=== PATIENT | female | born 1995 | race Caucasian/White ===

== ENCOUNTER 2019-07-22 13:55 | Emergency (ER) | payer OTHER, SELFPAY ==
[2019-07-22 14:06] VITALS: BP 122/80; PULSE 78; RESP 16; TEMP 36.7; O2SAT 100
--- NOTE | 2019-07-22 14:07 | ED.GENADULT ---
HPI - General Adult General Chief complaint: Ear Stated complaint: Ear Pain Time Seen by Provider: 07/22/19 14:07 Source: patient Mode of arrival: ambulatory Limitations: no limitations History of Present Illness HPI narrative: 24-year-old female patient presents to the [facility] with complaints of left ear pain and decreased hearing to the left ear for the past 2 days. Patient states that she does have chronic issues with her ears and states she has had ear infections, fungal infections of the outer ear as well as chronic cerebrum production. Patient states that she usually does have to go to an ENT doctor and get her ears flushed multiple times. Patient states that she tried to get in today but they were not able to get her in today. Patient denies any fevers, runny nose, stuffy nose, sore throat, cough, chest pain, shortness of breath, abdominal pain, nausea, vomiting or diarrhea. Related Data Home Medications Medication Instructions Recorded Confirmed sertraline [Zoloft] 25 mg PO DAILY 06/26/19 06/26/19 clotrimazole TOPICAL 07/22/19 Allergies Allergy/AdvReac Type Severity Reaction Status Date / Time mint Allergy Intermediate swelling Verified 05/13/19 12:23 amoxicillin AdvReac Unknown Nausea and Verified 05/13/19 12:23 Vomiting Penicillins AdvReac Unknown Nausea and Verified 05/13/19 12:23 Vomiting Review of Systems Review of Systems: Narrative: CONSTITUTIONAL: Denies fever, chills, or sweats. EYES: Denies visual changes, redness, or discharge. ENT: Denies rhinorrhea, congestion, sore throat, positive left otalgia. CARDIOVASCULAR: Denies chest pain, palpitations, or edema. RESPIRATORY: Denies cough or dyspnea. GASTROINTESTINAL: Denies abdominal pain, nausea, vomiting, or diarrhea. GENITOURINARY: Denies dysuria or hematuria. SKIN: Denies rash or itching. MUSCULOSKELETAL: Denies back pain, joint pain, or myalgia. NEUROLOGIC: Denies headache, numbness, or weakness. PSYCHIATRIC: Denies anxiety or depression. [facility] Past Medical History Medical History ADHD Anxiety History of kidney stones Urolithiasis Surgical History Surgical History History of appendectomy History of lithotripsy History of wisdom tooth extraction Social History Social History Smoking status: Never smoker Gender identity (if verbalized by the patient): Female Comments At the time of my signature I agree with nursing past medical history, surgical, social, and family history. There is no relevant family history pertinent to the presenting complaint. Exam Narrative: Exam Narrative: GENERAL: Well-appearing, well-nourished, and in no acute distress. HEAD: Normocephalic, atraumatic. EYES: PERRLA and EOMI. ENT: Nares clear, no rhinorrhea or epistaxis. Mucous membranes moist. Posterior pharynx with no erythema, tonsillar edema, exudates or lesions present. The left TM does have some erythema as well as some swelling and erythema noted to the canal. NECK: Supple. No lymphadenopathy CHEST: Clear to auscultation. No respiratory distress. HEART: Regular rate and rhythm. No murmur heard. Normal peripheral pulses. ABDOMEN: Soft, nontender, nondistended, normal active bowel sounds. EXTREMITIES: Normal range of motion. No edema. SKIN: Warm, dry, no rash. NEURO: No focal deficits. Alert and oriented x3. Course Vital Signs Vital signs: Vital Signs Temperature 36.7 C 07/22/19 14:06 Pulse Rate 78 07/22/19 14:06 Respiratory Rate 16 07/22/19 14:06 Blood Pressure 122/80 07/22/19 14:06 Pulse Oximetry 100 07/22/19 14:06 Temperature 36.7 C 07/22/19 14:06 Pulse Rate 78 07/22/19 14:06 Respiratory Rate 16 07/22/19 14:06 Blood Pressure 122/80 07/22/19 14:06 Pulse Oximetry 100 07/22/19 14:06 Vital signs reviewed. Medical Decision Making D
== END 2019-07-22 14:20 | disposition home or self-care (01) ==
PROVIDERS: Emergency Provider Nurse Practitioner Family; PCP Nurse Practitioner
DX: H60.62 Unspecified chronic otitis externa, left ear (principal); F41.9 Anxiety disorder, unspecified
CPT/HCPCS: 99213; G0463

== ENCOUNTER 2020-03-28 10:13 | Emergency (ER) | payer OTHER, SELFPAY ==
--- NOTE | ~2020-03-28 | XR_ITS ---
XR hand LT min 3V 03/28/2020 10:38 INDICATION: Left hand pain after recent injury PROCEDURE: 3 views left hand COMPARISON: No prior studies for comparison. FINDINGS: Fracture, dislocation or subluxation is not identified. The soft tissues appear within norm al limits. No foreign bodies are identified. IMPRESSION: 1: NO ACUTE BONE OR JOINT ABNORMALITY IDENTIFIED. Reviewed, dictated and finalized at location A.
[2020-03-28 10:29] VITALS: BP 128/83; PULSE 80; RESP 16; TEMP 36.8; O2SAT 99
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
== END 2020-03-28 11:00 | disposition home or self-care (01) ==
PROVIDERS: Emergency Provider Nurse Practitioner
DX: S69.92XA Unspecified injury of left wrist, hand and finger(s), initial encounter (principal); W22.09XA Striking against other stationary object, initial encounter; F90.9 Attention-deficit hyperactivity disorder, unspecified type; F41.9 Anxiety disorder, unspecified
CPT/HCPCS: 73130; 99213; G0463

== ENCOUNTER 2020-08-06 11:28 | Emergency (ER) | payer OTHER, SELFPAY ==
--- NOTE | 2020-08-06 11:38 | ED.WOUNDLAC ---
HPI - Wound/Laceration General Chief Complaint: Wound/Laceration Stated Complaint: non healing wound Time Seen by Provider: 08/06/20 11:44 Source: patient and RN notes reviewed Mode of arrival: ambulatory Limitations: no limitations History of Present Illness HPI narrative: 25-year-old female presents with concern for a wound near her breast. Reports history of getting wounds along her bra line, she has seen a template maker about it. Reports this most recent wound opened up and was draining. Denies any purulent drainage. Reports clear drainage. Denies fever, malaise, rash, otherwise. Body four view annotation: 1. <0.5 cm ulceration with pink tissue bed Related Data Allergies Allergy/AdvReac Type Severity Reaction Status Date / Time mint Allergy Intermediate swelling Verified 08/06/20 11:38 amoxicillin AdvReac Intermediate Nausea and Verified 08/06/20 11:38 Vomiting Penicillins AdvReac Intermediate Nausea and Verified 08/06/20 11:38 Vomiting Review of Systems Review of Systems: Narrative: CONSTITUTIONAL: Denies malaise, chills, sweats, or fever. CARDIOVASCULAR: Denies chest pain, palpitations, or edema. RESPIRATORY: Denies cough or dyspnea. SKIN: Reports wound along her bra line MUSCULOSKELETAL: Denies myalgia. All systems reviewed & are unremarkable except as noted in HPI and below PMFSH Past Medical History Medical History (Updated 08/06/20 @ 11:53 by Jes Hernández NP) ADHD Anxiety History of kidney stones Urolithiasis Surgical History Surgical History History of appendectomy History of lithotripsy History of wisdom tooth extraction Social History Social History Smoking status: Never smoker Gender identity (if verbalized by the patient): Female Comments At time of signature, agree with nursing past medical, surgical, social and family history. There is no relevant family history pertinent to the presenting complaint Exam Narrative: Exam Narrative: GENERAL: Well-appearing, well-nourished, and in no acute distress. HEAD: Normocephalic, atraumatic. EYES: PERRLA, conjunctivae clear, and EOMI. ENT: Mucous membranes moist. Oropharynx without edema, erythema or lesions. NECK: Supple. No lymphadenopathy CHEST: Clear to auscultation. No respiratory distress. HEART: Regular rate and rhythm. SKIN: Warm, dry. Ulceration under left breast, less than 5 cm in diameter, beefy red wound bed, no surrounding erythema, induration, swelling. NEURO: Alert and oriented x3. PSYCH: Normal mood and affect Skin: Full body images: 1. <0.5m diameter ulceration with beefy red wound bed with no surrounding erythema, induration, edema. Clear drainage noted Course Course Emergency Course: Patient is aware of diagnosis, understands and agrees to treatment plan. Anticipatory guidance given. Patient agrees to follow-up as directed and is aware of reasons to seek care at the emergency department. Portions of this record may have been created with voice recognition software Vital Signs Vital signs: Vital Signs Temperature 97.5 F L 08/06/20 11:44 Pulse Rate 74 08/06/20 11:44 Respiratory Rate 16 08/06/20 11:44 Blood Pressure 131/78 08/06/20 11:44 Pulse Oximetry 99 08/06/20 11:44 Temperature 97.5 F L 08/06/20 11:44 Pulse Rate 74 08/06/20 11:44 Respiratory Rate 16 08/06/20 11:44 Blood Pressure 131/78 08/06/20 11:44 Pulse Oximetry 99 08/06/20 11:44 Reviewed. MDM - Wound/Laceration MDM Narrative Medical decision making narrative: Exam findings show no acute concerns or changes; patient is non-toxic appearing and is in no distress. Patient is appropriate for outpatient treatment and follow-up. Differential Diagnosis Differential diagnosis: Likely abscess and other (Cellulitis, nonhealing wound) Critical Care Time Critical Care Time Critical Care Time: No Dis
[2020-08-06 11:44] VITALS: BP 131/78; PULSE 74; RESP 16; TEMP 36.4; O2SAT 99
== END 2020-08-06 11:58 | disposition home or self-care (01) ==
PROVIDERS: Emergency Provider Nurse Practitioner; PCP Nurse Practitioner
DX: L98.499 Non-pressure chronic ulcer of skin of other sites with unspecified severity (principal)
CPT/HCPCS: 99213; G0463

== ENCOUNTER 2022-02-11 14:34 | Emergency (ER) | payer OTHER, SELFPAY ==
[2022-02-11] VITALS (14 sets, daily range): BP systolic 112–143; BP diastolic 72–87; PULSE 84–122; RESP 20; TEMP 37.1; O2SAT 100
[2022-02-11 15:05] LABS: Basophils Percent Auto 0.3 % (0.2-1.2); Eosinophils Absolute Auto 0.1 K/mm3 (0-0.3); Eosinophils Percent Auto 1.8 % (0-4.4); Hematocrit 39.7 % (37.0-47.0); Hemoglobin 13.4 g/dL (12.0-15.0); Immature Granulocyte Absolute 0.01 K/mm3 (0.00-0.031); Immature Granulocyte Percent A 0.2 % (0-0.5); Lymphocytes Absolute Auto 1.16 K/mm3 (0.9-3.2); Lymphocytes Percent Auto 17.7 % (18.3-44.2); Mean Corpuscular HGB Conc 33.8 g/dl (32-36); Mean Corpuscular Hemoglobin 29.8 pg (26-34); Mean Corpuscular Volume 88.4 fl (80-100); Mean Platelet Volume 9.9 fl (7.4-10.4); Monocytes Absolute Auto 0.4 K/mm3 (0.1-0.6); Monocytes Percent Auto 6.6 % (2.6-8.5); Neutrophils Absolute Auto 4.8 K/mm3 (1.3-6.7); Neutrophils Percent Auto 73.4 % (45.5-73.1); Platelet Count Result 204 k/mm3 (150-375); Red Blood Count 4.49 M/mm3 (4.2-5.4); Red Cell Distribution Width 11.9 % (11.5-14.5); White Blood Count 6.6 K/mm3 (4.5-10.0)
[2022-02-11 15:36] LABS: Beta HCG Quantitative 12.65 mIU/ML
--- NOTE | 2022-02-11 17:23 | ED.ABDPAIN ---
HPI - Abdominal Pain General Chief Complaint: Back Pain/Injury <Sanjuana Nolen PA-C - Last Filed: 02/11/22 19:25> Stated Complaint: lower back pain, possibly ? <Sanjuana Nolen PA-C - Last Filed: 02/11/22 19:25> Time Seen by Provider: 02/11/22 17:07 <Sanjuana Nolen PA-C - Last Filed: 02/11/22 19:25> Source: patient <MARYAM Robins Last Filed: 02/11/22 19:25> Mode of arrival: ambulatory <Sanjuana Nolen PA-C - Last Filed: 02/11/22 19:25> Limitations: no limitations <Sanjuana Nolen PA-C - Last Filed: 02/11/22 19:25> History of Present Illness HPI narrative: This is a 26 year old , about 5 weeks that presents to the ER for pelvic cramping intermittently over the last couple of days. Reports she had a positive home test a couple of days ago. She recently had a miscarriage earlier this year. She has not had any vaginal bleeding. Her last menstrual period was January 06. Her OB is Dr. Rios. Denies fever, vomiting, dysuria, hematuria. <Sanjuana Nolen PA-C - Last Filed: 02/11/22 19:25> Related Data Allergies/Adverse Reactions: Allergies Allergy/AdvReac Type Severity Reaction Status Date / Time mint Allergy Intermediate swelling Verified 08/06/20 11:38 amoxicillin AdvReac Intermediate Nausea and Verified 08/06/20 11:38 Vomiting Penicillins AdvReac Intermediate Nausea and Verified 08/06/20 11:38 Vomiting <Sanjuana Nolen PA-C - Last Filed: 02/11/22 19:25> Review of Systems Review of Systems: CONSTITUTIONAL: Denies fever GASTROINTESTINAL: Reports pelvic cramping. GENITOURINARY: Denies dysuria or hematuria. <Sanjuana Nolen PA-C - Last Filed: 02/11/22 19:25> All systems reviewed & are unremarkable except as noted in HPI and below <Sanjuana Nolen PA-C - Last Filed: 02/11/22 19:25> PMFSH Past Medical History Medical History: Medical History (Updated 02/11/22 @ 19:23 by Sanjuana Nolen PA-C) ADHD Anxiety History of kidney stones Urolithiasis <Sanjuana Nolen PA-C - Last Filed: 02/11/22 19:25> Surgical History Surgical History: Surgical History History of appendectomy History of lithotripsy History of wisdom tooth extraction <Sanjuana Nolen PA-C - Last Filed: 02/11/22 19:25> Social History Social History: Social History Smoking status: Never smoker Gender identity (if verbalized by the patient): Female <Sanjuana Nolen PA-C - Last Filed: 02/11/22 19:25> Exam Narrative: GENERAL: Well-appearing, well-nourished, and in no acute distress. HEAD: Normocephalic, atraumatic. EYES: EOMI. CHEST: Clear to auscultation. No respiratory distress. No wheezes rales or rhonchi HEART: Regular rate and rhythm. No murmur heard. Normal peripheral pulses. ABDOMEN: Soft, nontender, nondistended, normal active bowel sounds. No CVA tenderness EXTREMITIES: Normal range of motion. No edema. SKIN: Warm, dry, no rash. NEURO: No focal deficits. Alert and oriented x3. PSYCH: Normal mood and affect <Sanjuana Nolen PA-C - Last Filed: 02/11/22 19:25> Course TELEPHONIC NURSE CASE MANAGER/PA Physician Supervision For this patient encounter, I reviewed the TELEPHONIC NURSE CASE MANAGER or PA documentation, treatment plan, and medical decision making <Krzysztof Ferrell MD - Last Filed: 02/11/22 20:20> Vital Signs Vital signs: Vital Signs Temperature 98.8 F 02/11/22 14:51 Pulse Rate 122 H 02/11/22 14:51 Respiratory Rate 20 02/11/22 14:51 Blood Pressure 143/85 H 02/11/22 14:51 Pulse Oximetry 100 02/11/22 14:51 Oxygen Delivery Room Air 02/11/22 14:51 Temperature 98.8 F 02/11/22 14:51 Pulse Rate 84 02/11/22 17:50 Respiratory Rate 20 02/11/22 14:51 Blood Pressure 121/83 02/11/22 19:31 Pulse Oximetry 100 02/11/22 19:45 Oxygen Delivery Room Air 02/11/22 14:51 <Sanjuana Nolen PA-C - Last Filed: 08
[2022-02-11 17:47] LABS: Appearance Urine Clear (Clear); Bilirubin Urine Negative (Negative); Blood Urine Negative (Negative); Color Urine Yellow (Yellow); Glucose Urine UA Negative (Negative); Ketones Urine Negative (Negative); Leukocyte Esterase Ur Negative LEU/UL (Negative); Nitrate Urine Negative (Negative); Protein Urine Negative (Negative); Specific Grav Ur 1.015 (1.001-1.035); Urobilinogen Urine 0.2 mg/dL (<2.0)
[2022-02-11 17:48] LABS: Add Urine Microscopic? NO
[2022-02-11 19:03] LABS: Alanine Aminotransferase 23 U/L (6-35); Albumin Level 4.7 g/dL (3.5-5.1); Alkaline Phosphatase 106 U/L (38-126); Anion Gap 10 mmol/L (8-16); Aspartate Amino Transferase 27 U/L (14-36); Bilirubin,Total 0.3 mg/dL (0.2-1.3); Blood Urea Nitrogen 12 mg/dL (7-17); Calcium 9.2 mg/dL (8.4-10.2); Carbon Dioxide 26 mmol/L (22-30); Chloride 103 mmol/L (98-107); Estimated CRCL calculation 110 ml/min; Estimated Glomerular Filt Rate > 60; Glucose 88 mg/dL (65-110); Sodium 139 mmol/L (137-145)
== END 2022-02-11 19:51 | disposition home or self-care (01) ==
PROVIDERS: Emergency Medicine; Physician Assistant; Emergency Provider Emergency Medicine; PCP Nurse Practitioner
DX: O26.891 Other specified pregnancy related conditions, first trimester (principal); R10.2 Pelvic and perineal pain; Z87.442 Personal history of urinary calculi; Z3A.01 Less than 8 weeks gestation of pregnancy
CPT/HCPCS: 36415; 80053; 81003; 81025; 84702; 85025; 85461; 99284

== ENCOUNTER 2022-02-13 09:58 | Outpatient (CLI) | payer OTHER, SELFPAY ==
[2022-02-13 10:46] LABS: Beta HCG Quantitative 16.18 mIU/ML
== END 2022-02-13 09:59 | disposition home or self-care (01) ==
LOC: ANHLAB 10:03
PROVIDERS: PCP Nurse Practitioner; Referring Provider Obstetrics & Gynecology; Visit Provider Physician Assistant
DX: Z34.90 Encounter for supervision of normal pregnancy, unspecified, unspecified trimester (principal); Z3A.00 Weeks of gestation of pregnancy not specified
CPT/HCPCS: 36415; 84702

== ENCOUNTER 2022-02-15 17:04 | Outpatient (CLI) | payer OTHER, SELFPAY ==
[2022-02-15 18:16] LABS: Beta HCG Quantitative 24.21 mIU/ML
[2022-02-18 06:28] LABS: Progesterone 2.2 ng/mL (***)
== END 2022-02-15 17:05 | disposition home or self-care (01) ==
PROVIDERS: PCP Nurse Practitioner; Visit Provider Obstetrics & Gynecology
DX: O20.0 Threatened abortion (principal); Z3A.00 Weeks of gestation of pregnancy not specified
CPT/HCPCS: 36415; 84144; 84702

== ENCOUNTER 2022-02-22 11:18 | Outpatient (RCR) | payer OTHER, SELFPAY ==
[2022-02-22 12:06] LABS: Beta HCG Quantitative < 2.39 mIU/ML
== END 2022-05-23 23:59 | disposition home or self-care (01) ==
LOC: ANHLAB 11:18
PROVIDERS: PCP Nurse Practitioner; Visit Provider Obstetrics & Gynecology
DX: O20.0 Threatened abortion (principal); Z3A.00 Weeks of gestation of pregnancy not specified
CPT/HCPCS: 36415; 84702

== ENCOUNTER 2022-07-16 19:59 | Emergency (ER) | payer OTHER, SELFPAY ==
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
[2022-07-16 20:02] VITALS: BP 132/73; PULSE 103; RESP 18; TEMP 36.6; O2SAT 100
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
== END 2022-07-16 21:35 | disposition home or self-care (01) ==
PROVIDERS: Emergency Provider Emergency Medicine; PCP Nurse Practitioner
DX: O9A.211 Injury, poisoning and certain other consequences of external causes complicating pregnancy, first trimester (principal); S19.9XXA Unspecified injury of neck, initial encounter; V49.50XA Passenger injured in collision with unspecified motor vehicles in traffic accident, initial encounter; Z3A.00 Weeks of gestation of pregnancy not specified
CPT/HCPCS: 72040; 99283

== ENCOUNTER 2022-07-26 11:12 | Outpatient (CLI) | payer OTHER, SELFPAY | END 2022-07-26 11:13 | disposition home or self-care (01) | LOC: ANHLAB 11:15 | PROVIDERS: PCP Nurse Practitioner; Visit Provider Obstetrics & Gynecology | DX: O20.0 Threatened abortion (principal); Z3A.00 Weeks of gestation of pregnancy not specified | CPT/HCPCS: 36415; 84702 ==

== ENCOUNTER 2022-08-23 15:09 | Emergency (ER) | payer OTHER, SELFPAY ==
[2022-08-23 15:11] VITALS: BP 129/85; PULSE 79; RESP 17; TEMP 37.1; O2SAT 100
--- NOTE | 2022-08-23 15:15 | ECG_ITS ---
Measurements Intervals [place] Rate: 79 P: 53 VT: 127 QRS: 74 QRSD: 97 T: 40 QT: 351 QTc: 404 Interpretive Statements SINUS RHYTHM NORMAL ECG NO PREVIOUS ECG AVAILABLE FOR COMPARISON Electronically Signed On 08-24-2022 14:56:05 LAB SPECIALIST by Chilo Wells D.O.
[2022-08-23 15:29] LABS: Basophils Percent Auto 0.3 % (0.2-1.2); Eosinophils Absolute Auto 0.1 K/mm3 (0-0.3); Eosinophils Percent Auto 1.4 % (0-4.4); Hematocrit 39.8 % (37.0-47.0); Hemoglobin 13.5 g/dL (12.0-15.0); Immature Granulocyte Absolute 0.03 K/mm3 (0.00-0.031); Immature Granulocyte Percent A 0.4 % (0-0.5); Lymphocytes Absolute Auto 1.12 K/mm3 (0.9-3.2); Lymphocytes Percent Auto 14.1 % (18.3-44.2); Mean Corpuscular HGB Conc 33.9 g/dl (32-36); Mean Corpuscular Volume 85.4 fl (80-100); Monocytes Absolute Auto 0.5 K/mm3 (0.1-0.6); Monocytes Percent Auto 6.1 % (2.6-8.5); Neutrophils Absolute Auto 6.2 K/mm3 (1.3-6.7); Neutrophils Percent Auto 77.7 % (45.5-73.1); Platelet Count Result 200 k/mm3 (150-375); Red Blood Count 4.66 M/mm3 (4.2-5.4); Red Cell Distribution Width 13.1 % (11.5-14.5)
[2022-08-23 15:43] LABS: Alanine Aminotransferase 23 U/L (6-35); Albumin Level 4.2 g/dL (3.5-5.1); Alkaline Phosphatase 72 U/L (38-126); Anion Gap 7 mmol/L (8-16); Aspartate Amino Transferase 21 U/L (14-36); Bilirubin,Total 0.4 mg/dL (0.2-1.3); Blood Urea Nitrogen 9 mg/dL (7-17); Calcium 8.8 mg/dL (8.4-10.2); Carbon Dioxide 22 mmol/L (22-30); Chloride 102 mmol/L (98-107); Estimated CRCL calculation 147 ml/min; Estimated Glomerular Filt Rate > 60; Glucose 76 mg/dL (65-110); Potassium 3.9 mmol/L (3.4-5.0); Sodium 131 mmol/L (137-145)
[2022-08-23 17:11] VITALS: BP 112/75; PULSE 78; RESP 13; O2SAT 100
--- NOTE | 2022-08-23 17:21 | ED.DIZZY ---
HPI - Dizziness General Chief Complaint: Dizziness Stated Complaint: medication reaction, dizziness Time Seen by Provider: 08/23/22 17:00 History of Present Illness HPI Narrative: Patient is a 27-year-old G3, P0 female with a history of anxiety who is currently 9 weeks here for evaluation of dizziness over the past 3 days. Patient states that she feels lightheaded with position changes but also notes nausea and vomiting. She has been tolerating p.o. but she states that she has been vomiting in the morning. She contacted her OB who recommended ED eval. no chest pain, shortness of breath, headache, vision changes. She did start sertraline 3 days ago. Related Data Home Medications Medication Instructions Recorded Confirmed progesterone micronized 200 mg mg 07/16/22 capsule Allergies Allergy/AdvReac Type Severity Reaction Status Date / Time mint Allergy Intermediate swelling Verified 07/16/22 20:05 amoxicillin AdvReac Intermediate Nausea and Verified 07/16/22 20:05 Vomiting Penicillins AdvReac Intermediate Nausea and Verified 07/16/22 20:05 Vomiting Review of Systems Review of Systems: Gen.: Reports dizziness. Denies fevers or chills Eyes: Denies eye pain or visual change ENT: Denies congestion Respiratory: Denies shortness of breath or cough CV: Denies chest pain or palpitations GI: Reports nausea and vomiting. Denies abdominal pain or diarrhea : denies burning, urgency, frequency or hematuria Musculoskeletal: Denies back pain or muscle pain Neuro: Denies numbness, tingling, weakness or focal weakness Skin: Denies rash Except as documented, all other systems reviewed and negative PMFSH Past Medical History Medical History (Updated 08/23/22 @ 18:35 by Sanjuana Hamilton PA-C) ADHD Anxiety History of kidney stones Urolithiasis Surgical History Surgical History History of appendectomy History of lithotripsy History of wisdom tooth extraction Social History Social History Smoking status: Never smoker Gender identity (if verbalized by the patient): Female Exam Narrative: APPEARANCE: Well appearing, no pain in distress, well-nourished. Head: Normocephalic and atraumatic. EYES: PERRLA/EOMI, conjunctivae clear NOSE: No nasal drainage EARS: External ear normal in appearance THROAT: Oropharynx is clear. Mucous membranes are moist. NECK: Supple. No adenopathy, no masses. RESPIRATORY: Airway patent, respirations nonlabored. Clear to auscultation bilaterally, no rales, rhonchi, wheezing. CARDIOVASCULAR: Regular rate and rhythm without murmurs, rubs, or gallops. ABDOMINAL: Normoactive bowel sounds. Soft, nontender, nondistended. No rebound tenderness or guarding. MUSCULOSKELETAL: Extremities are warm and well-perfused. Moves all extremities well. No edema. NEURO: No nystagmus with EOMs. [id number] normal. Normal speech. No focal neurologic deficits. SKIN: Skin is warm and dry. No rashes. PSYCHIATRIC: Normal affect/mood.. Course Vital Signs Vital signs: Vital Signs Temperature 98.7 F 08/23/22 15:11 Pulse Rate 79 08/23/22 15:11 Respiratory Rate 17 08/23/22 15:11 Blood Pressure 129/85 08/23/22 15:11 Pulse Oximetry 100 08/23/22 15:11 Oxygen Delivery Room Air 08/23/22 15:11 Temperature 98.7 F 08/23/22 15:11 Pulse Rate 89 08/23/22 18:50 Respiratory Rate 16 08/23/22 18:50 Blood Pressure 113/76 08/23/22 18:50 Pulse Oximetry 99 08/23/22 18:50 Oxygen Delivery Room Air 08/23/22 15:11 MDM - Dizziness MDM Narrative Medical decision making narrative: 27-year-old female who is currently about 9 weeks here for evaluation of dizziness and nausea over the past 3 days. She is nontoxic in appearance and has normal vital signs, normal neurologic exam. No abdominal pain or vaginal bleeding. Able to ambulate
[2022-08-23] MEDS: MECLIZINE HCL 25 MG TABLET PO (17:40)
[2022-08-23] MEDS: LACTATED RINGERS 1,000 ML 999 ML IV CONT (17:40)
[2022-08-23 17:54] VITALS: BP 103/63; PULSE 70
[2022-08-23 17:58] VITALS: BP 118/77; PULSE 75
[2022-08-23 17:58] LABS: Appearance Urine Clear (Clear); Bacteria Urine None Seen /hpf; Bilirubin Urine Negative (Negative); Blood Urine Negative (Negative); Color Urine Yellow (Yellow); Glucose Urine UA Negative (Negative); Ketones Urine 2+ mg/dL (Negative); Leukocyte Esterase Ur Trace LEU/UL (Negative); Nitrate Urine Negative (Negative); Non Pathogenic Casts 0-2; Protein Urine Negative (Negative); RBC Urine 0-2 /hpf (0-2); Specific Grav Ur 1.013 (1.001-1.035); Squamous Epithelial Cell Urine None seen /hpf (Few); Urobilinogen Urine 0.2 mg/dL (<2.0); WBC Urine 0-5 /hpf
[2022-08-23 17:59] VITALS: BP 105/70; PULSE 77
[2022-08-23 18:07] LABS: Add Urine Microscopic? YES
[2022-08-23 18:50] VITALS: BP 113/76; PULSE 89; RESP 16; O2SAT 99
== END 2022-08-23 18:52 | disposition home or self-care (01) ==
PROVIDERS: Emergency Medicine; Emergency Provider Physician Assistant; PCP Nurse Practitioner
DX: O21.9 Vomiting of pregnancy, unspecified (principal); O26.891 Other specified pregnancy related conditions, first trimester; R82.71 Bacteriuria; Z87.442 Personal history of urinary calculi; Z3A.09 9 weeks gestation of pregnancy
CPT/HCPCS: 36415; 80053; 81001; 81025; 85025; 93005; 96360; 99284; A9270; J7120

== ENCOUNTER 2023-01-24 12:20 | Emergency (ER) | payer OTHER, SELFPAY ==
[2023-01-24] VITALS (8 sets, daily range): BP systolic 98–121; BP diastolic 62–85; PULSE 68–96; RESP 12–19; TEMP 36.8; O2SAT 97–100
--- NOTE | ~2023-01-24 | XR_ITS ---
EXAMINATION: XR chest 1V portable DATE: 01/24/2023 13:15 INDICATION: Chest pain TECHNIQUE: frontal view of the chest was obtained. COMPARISON: None FINDINGS: The lungs are clear with no focal airspace opacities, pulmonary edema, pleural effusion or pneumothor ax. The cardiomediastinal silhouette is normal. Mild upper thoracic levocurvature. IMPRESSION: 1. No acute cardiopulmonary disease. Reviewed, dictated and finalized at location B.
--- NOTE | 2023-01-24 12:22 | ECG_ITS ---
Measurements Intervals [employer] Rate: 99 P: 11 MS: 123 QRS: 23 QRSD: 81 T: -7 QT: 321 QTc: 412 Interpretive Statements SINUS RHYTHM COMPARED TO ECG 08/23/2022 15:19:01 NO SIGNIFICANT CHANGES Electronically Signed On 01-24-2023 14:23:45 CDT by Nyasia Edward M.D.
--- NOTE | 2023-01-24 12:29 | PC.NURSE ---
Patient stating mother, who is visitor, is part of her stress. Patient feels more comfortable answering questions if mother waits in lobby.
[2023-01-24 12:49] LABS: Basophils Percent Auto 0.3 % (0.2-1.2); Eosinophils Absolute Auto 0.2 K/mm3 (0-0.3); Eosinophils Percent Auto 1.7 % (0-4.4); Hematocrit 37.3 % (37.0-47.0); Hemoglobin 12.8 g/dL (12.0-15.0); Immature Granulocyte Percent A 1.1 % (0-0.5); Lymphocytes Absolute Auto 0.97 K/mm3 (0.9-3.2); Mean Corpuscular HGB Conc 34.3 g/dl (32-36); Mean Corpuscular Hemoglobin 31.4 pg (26-34); Mean Corpuscular Volume 91.4 fl (80-100); Mean Platelet Volume 10.2 fl (7.4-10.4); Monocytes Absolute Auto 0.5 K/mm3 (0.1-0.6); Monocytes Percent Auto 5.5 % (2.6-8.5); Neutrophils Absolute Auto 7.1 K/mm3 (1.3-6.7); Neutrophils Percent Auto 80.4 % (45.5-73.1); Platelet Count Result 175 k/mm3 (150-375); Red Blood Count 4.08 M/mm3 (4.2-5.4); Red Cell Distribution Width 12.7 % (11.5-14.5); White Blood Count 8.8 K/mm3 (4.5-10.0)
--- NOTE | 2023-01-24 12:55 | PC.NURSE ---
OB at bedside at this time for monitoring.
[2023-01-24 12:58] LABS: Alanine Aminotransferase 26 U/L (6-35); Albumin Level 3.8 g/dL (3.5-5.1); Alkaline Phosphatase 110 U/L (38-126); Anion Gap 5 mmol/L (8-16); Aspartate Amino Transferase 28 U/L (14-36); Bilirubin,Total 0.3 mg/dL (0.2-1.3); Blood Urea Nitrogen 7 mg/dL (7-17); Calcium 8.8 mg/dL (8.4-10.2); Carbon Dioxide 22 mmol/L (22-30); Chloride 105 mmol/L (98-107); Estimated CRCL calculation 174 ml/min; Estimated Glomerular Filt Rate > 60; Glucose 75 mg/dL (65-110); INR 0.9; Lipase 34 U/L (23-300); Potassium 3.9 mmol/L (3.4-5.0); Sodium 132 mmol/L (137-145)
[2023-01-24 12:59] LABS: Partial Thromboplastin Time 25.2 SECONDS (22.3-36.8)
[2023-01-24 13:09] LABS: Troponin I < 0.012 ng/mL (0.000-0.034)
--- NOTE | 2023-01-24 13:57 | ED.CHESTPAIN ---
HPI - Chest Pain General Chief Complaint: Chest Pain Stated Complaint: abd/chest /si Time Seen by Provider: 01/24/23 13:16 History of Present Illness HPI narrative: Patient is a 27-year-old female at approximately 31 weeks gestation presenting with chest pain after a panic attack. Patient states that she has been under a lot of stress lately and has been suffering from more frequent panic attacks. States that when she has them her heart rate goes up and today she had some chest pain. States that she was also having some pain in her left lower quadrant so she was concerned for labor. Currently, she states that she feels improved. She denies any current chest pain or abdominal pain. No pleuritic chest pain. No shortness of breath. No leg swelling. No nausea or vomiting. She told triage that she had some thoughts of self-harm after her panic attack. On my evaluation, she adamantly denies SI or HI. States that she has been feeling a bit depressed but she would never do anything harmful to herself. Related Data Home Medications Medication Instructions Recorded Confirmed progesterone micronized 200 mg mg 07/16/22 capsule Allergies Allergy/AdvReac Type Severity Reaction Status Date / Time mint Allergy Intermediate swelling Verified 01/24/23 12:55 amoxicillin AdvReac Intermediate Nausea and Verified 01/24/23 12:55 Vomiting Penicillins AdvReac Intermediate Nausea and Verified 01/24/23 12:55 Vomiting Review of Systems Review of Systems: All systems reviewed & are unremarkable except as noted in HPI and below PMFSH Past Medical History Medical History (Updated 01/25/23 @ 00:00 by Background Daemon) ADHD Anxiety History of kidney stones Urolithiasis Surgical History Surgical History History of appendectomy History of lithotripsy History of wisdom tooth extraction Social History Social History Smoking status: Never smoker Substance use type: does not use Gender identity (if verbalized by the patient): Female Exam Narrative: GENERAL: Well-appearing, well-nourished, and in no acute distress. Pleasant and cooperative HEAD: Normocephalic, atraumatic. EYES: PERRLA and EOMI. ENT: Nares clear, no rhinorrhea or epistaxis. Mucous membranes moist. NECK: Supple. CHEST: Clear to auscultation. No respiratory distress. HEART: Regular rate and rhythm. No murmur heard. Normal peripheral pulses. ABDOMEN: Soft, appropriately gravid abdomen without tenderness EXTREMITIES: Normal range of motion. No edema. SKIN: Warm, dry, no rash. NEURO: No focal deficits. Alert and oriented x3. PSYCH: Normal mood and affect. Denies SI and HI Course Vital Signs Vital signs: Vital Signs Temperature 98.2 F 01/24/23 12:22 Pulse Rate 88 01/24/23 12:22 Respiratory Rate 16 01/24/23 12:22 Blood Pressure 121/81 01/24/23 12:22 Pulse Oximetry 100 01/24/23 12:22 Oxygen Delivery Room Air 01/24/23 12:22 Temperature 98.2 F 01/24/23 12:22 Pulse Rate 68 01/24/23 17:54 Respiratory Rate 15 01/24/23 17:54 Blood Pressure 116/85 01/24/23 17:54 Pulse Oximetry 99 01/24/23 17:54 Oxygen Delivery Room Air 01/24/23 12:51 MDM - Chest Pain MDM Narrative Medical decision making narrative: Patient is a 27-year-old female presenting with chest pain and abdominal pain after having a panic attack. Vitals here are stable. Exam remarkable for above. EKG per my interpretation shows normal sinus rhythm, normal axis and intervals, no acute ischemic changes. Blood work is unremarkable. Chest x-ray without acute abnormalities. Patient received a liter of fluids and continues to feel well. She denies any recurrence of pain. OB performed monitoring which was reassuring. Patient spoke with social work who provided outpatient resources for her to follow-up with [facility]
[2023-01-24] MEDS: LACTATED RINGERS 1,000 ML 999 ML IV CONT (14:08)
[2023-01-24 15:58] LABS: Troponin I < 0.012 ng/mL (0.000-0.034)
--- NOTE | 2023-01-24 17:27 | PCCCNOTE ---
Met with patient bedside, patient is alert and oriented x4. Per admission RN, patient stated she was suicidal with no plan of actually harming herself. when CC met with patient, patient stated that she felt better and was not suicidal. CC gave patient resources and financial assistance. Patient is ready to go home.
== END 2023-01-24 17:56 | disposition home or self-care (01) ==
PROVIDERS: Emergency Medicine; Emergency Provider Emergency Medicine; PCP Nurse Practitioner
DX: O99.343 Other mental disorders complicating pregnancy, third trimester (principal); F41.0 Panic disorder [episodic paroxysmal anxiety]; O26.893 Other specified pregnancy related conditions, third trimester; R10.32 Left lower quadrant pain; Z87.442 Personal history of urinary calculi; Z3A.31 31 weeks gestation of pregnancy
CPT/HCPCS: 36415; 71045; 80053; 83690; 84484; 85025; 85610; 85730; 93005; 96360; 99284; J7120

== ENCOUNTER 2023-02-26 20:19 | Observation (INO) | payer OTHER, SELFPAY ==
[2023-02-26 20:53] VITALS: BP 110/64; PULSE 120; RESP 15; TEMP 36.8; O2SAT 100
[2023-02-26 21:14] LABS: Basophils Percent Auto 0.3 % (0.2-1.2); Eosinophils Absolute Auto 0.3 K/mm3 (0-0.3); Eosinophils Percent Auto 2.6 % (0-4.4); Hematocrit 37.5 % (37.0-47.0); Hemoglobin 12.7 g/dL (12.0-15.0); Immature Granulocyte Absolute 0.18 K/mm3 (0.00-0.031); Immature Granulocyte Percent A 1.8 % (0-0.5); Lymphocytes Absolute Auto 0.78 K/mm3 (0.9-3.2); Mean Corpuscular HGB Conc 33.9 g/dl (32-36); Mean Corpuscular Hemoglobin 30.9 pg (26-34); Mean Corpuscular Volume 91.2 fl (80-100); Mean Platelet Volume 10.5 fl (7.4-10.4); Monocytes Percent Auto 9.7 % (2.6-8.5); Neutrophils Absolute Auto 7.6 K/mm3 (1.3-6.7); Neutrophils Percent Auto 77.6 % (45.5-73.1); Platelet Count Result 158 k/mm3 (150-375); Red Blood Count 4.11 M/mm3 (4.2-5.4); Red Cell Distribution Width 12.4 % (11.5-14.5); White Blood Count 9.8 K/mm3 (4.5-10.0)
[2023-02-26 21:25] LABS: Alanine Aminotransferase 20 U/L (6-35); Albumin Level 3.8 g/dL (3.5-5.1); Alkaline Phosphatase 148 U/L (38-126); Anion Gap 8 mmol/L (8-16); Aspartate Amino Transferase 26 U/L (14-36); Bilirubin,Total 0.4 mg/dL (0.2-1.3); Blood Urea Nitrogen 4 mg/dL (7-17); Calcium 8.8 mg/dL (8.4-10.2); Carbon Dioxide 19 mmol/L (22-30); Chloride 105 mmol/L (98-107); Estimated Glomerular Filt Rate > 60; Glucose 83 mg/dL (65-110); Lipase 42 U/L (23-300); Potassium 3.6 mmol/L (3.4-5.0); Sodium 132 mmol/L (137-145)
[2023-02-26 21:54] LABS: Appearance Urine Cloudy (Clear); Bacteria Urine 1+ /hpf; Bilirubin Urine Negative (Negative); Blood Urine Negative (Negative); Color Urine Yellow (Yellow); Glucose Urine UA Negative (Negative); Ketones Urine 3+ mg/dL (Negative); Leukocyte Esterase Ur 3+ LEU/UL (Negative); Need Manual Microscopic Reviewed; Nitrate Urine Negative (Negative); Non Pathogenic Casts 0-2; Protein Urine Negative (Negative); RBC Urine 0-2 /hpf (0-2); Specific Grav Ur 1.008 (1.001-1.035); Squamous Epithelial Cell Urine Few /hpf (Few); Urobilinogen Urine 0.2 mg/dL (<2.0); WBC Urine 21-50 /hpf
[2023-02-26 21:55] LABS: Add Urine Microscopic? YES
[2023-02-26 22:47] LABS: Strep Group A RT-PCR NOT DETECTED (Negative)
[2023-02-26 22:57] LABS: Influenza A QL RT-PCR Negative (Negative); Influenza B QL RT-PCR Negative (Negative); RSV RNA, RT-PCR Negative (Negative); SARS-CoV-2 RNA PCR Positive (Negative)
[2023-02-27] VITALS (7 sets, daily range): BP systolic 110–127; BP diastolic 72–82; PULSE 87–101; RESP 16–19; TEMP 36.7–36.9; O2SAT 98–99; BMI 30.9
--- NOTE | 2023-02-27 02:15 | PC.NURSE ---
Pt reports she was given water in waiting room and was able to keep it down
--- NOTE | 2023-02-27 02:58 | ED.GENADULT ---
HPI - General Adult General Chief complaint: Nausea/Vomiting/Diarrhea Stated complaint: ST, body aches, fever, 37 weeks Time Seen by Provider: 02/27/23 02:16 History of Present Illness HPI narrative: Pt presents to the ER with body aches, sinus congestion and flu like symptoms. She is 37 weeks . She has also had an increase in vomiting. Patient is very pleasant and overall her exam is benign except for gravid abdomen Related Data Home Medications Medication Instructions Recorded Confirmed progesterone micronized 200 mg mg 07/16/22 capsule Allergies Allergy/AdvReac Type Severity Reaction Status Date / Time mint Allergy Intermediate swelling Verified 02/26/23 20:56 amoxicillin AdvReac Intermediate Nausea and Verified 02/26/23 20:56 Vomiting Penicillins AdvReac Intermediate Nausea and Verified 02/26/23 20:56 Vomiting Review of Systems Review of Systems: Review of systems negative except what is documented in the [facility] Past Medical History Medical History (Updated 02/27/23 @ 04:37 by Liya Cochran MD) ADHD Anxiety History of kidney stones Urolithiasis Surgical History Surgical History History of appendectomy History of lithotripsy History of wisdom tooth extraction Social History Social History Smoking status: Never smoker Substance use type: does not use Gender identity (if verbalized by the patient): Female Exam Narrative: GENERAL: Well-appearing, well-nourished, and in no acute distress. HEAD: Normocephalic, atraumatic. EYES: PERRLA and EOMI. ENT: Nares clear, no rhinorrhea or epistaxis. Mucous membranes moist. NECK: Supple. CHEST: Clear to auscultation. No respiratory distress. HEART: Regular rate and rhythm. ABDOMEN: Soft, nontender, . GRAVID EXTREMITIES: Normal range of motion. No edema. SKIN: Warm, dry, no rash. NEURO: No focal deficits. Alert and oriented x3. PSYCH: Normal mood and affect. Course Vital Signs Vital signs: Vital Signs Temperature 36.8 C 02/26/23 20:53 Pulse Rate 120 H 02/26/23 20:53 Respiratory Rate 15 02/26/23 20:53 Blood Pressure 110/64 02/26/23 20:53 Pulse Oximetry 100 02/26/23 20:53 Oxygen Delivery Room Air 02/26/23 20:53 Temperature 36.9 C 02/27/23 06:00 Pulse Rate 87 02/27/23 06:01 Respiratory Rate 19 02/27/23 05:15 Blood Pressure 127/81 02/27/23 06:01 Pulse Oximetry 98 02/27/23 05:15 Oxygen Delivery Room Air 02/27/23 05:48 Medical Decision Making MDM Narrative Medical decision making narrative: Urine consistent with urinary tract infection, Keflex ordered. Will reevaluate patient upon reevaluation of patient she is holding her lower abdomen saying that she is having cramping. She has been having the symptoms for the past few days at home. Patient states she thought it was [place]ran contractions. Her discomfort is pretty consistent and regular in the emergency department. Because she is 37 weeks we will send her down to the OB floor for evaluation. I discussed this with her OB physician. Vital Signs Vital Signs: Vital Signs Temperature 36.8 C 02/26/23 20:53 Pulse Rate 120 H 02/26/23 20:53 Respiratory Rate 15 02/26/23 20:53 Blood Pressure 110/64 02/26/23 20:53 Pulse Oximetry 100 02/26/23 20:53 Oxygen Delivery Room Air 02/26/23 20:53 Temperature 36.9 C 02/27/23 06:00 Pulse Rate 87 02/27/23 06:01 Respiratory Rate 19 02/27/23 05:15 Blood Pressure 127/81 02/27/23 06:01 Pulse Oximetry 98 02/27/23 05:15 Oxygen Delivery Room Air 02/27/23 05:48 Lab Data 02/26/23 21:04 02/26/23 21:04 Labs: Lab Results 02/26/23 02/26/23 Range/Units 21:04 21:11 WBC 9.8 (4.5-10.0) K/mm3 RBC 4.11 L (4.2-5.4) M/mm3 Hgb 12.7 (12.0-15.0) g/dL Hct
[2023-02-27] MEDS: CEPHALEXIN 500 MG CAPSULE PO (03:31)
--- NOTE | 2023-02-27 03:57 | PC.NURSE ---
Pt c/o abd cramping. EDP Dim[facility] notified.
--- NOTE | 2023-02-27 05:48 | LDADM ---
This patient, Sanjuana Mullins, was admitted to OB Post 115 on 02/27/23 at 0525. Plans for labor, pain management and were discussed with patient. Patient/family oriented to hospital policies and general routines including ID bracelet, bed and alarms, visiting hours, pain management, procedures, bathroom and other care routines, personal items, smoking policy, room service/diet and guest tray routines, infant security routines, and visiting hours. Patient/Family are encouraged to report perceived risks to care and to ask questions if they do not understand what they are told or what they should do. See OBIX for further documentation.
--- NOTE | 2023-02-27 07:53 | PC.NURSE ---
20 g IV taken out of left hand. WNL.
--- NOTE | 2023-03-18 22:38 | P.PNOB_ITS ---
OB - Triage/Final Diagnosis Visit Information Comments/Additional reasons for admission: I have assessed the risk for this patient, Sanjuana Mullins, and determined that she would benefit from observation care. Evaluation Laboratory results: Laboratory Tests 02/26/23 02/26/23 21:04 21:11 WBC 9.8 RBC 4.11 L Hgb 12.7 Hct 37.5 MCV 91.2 MCH 30.9 MCHC 33.9 RDW 12.4 Plt Count 158 MPV 10.5 H Immature Gran % (Auto) 1.8 H Neut % (Auto) 77.6 H Lymph % (Auto) 8.0 L [place] % (Auto) 9.7 H Eos % (Auto) 2.6 Baso % (Auto) 0.3 Lymph # (Auto) 0.78 L [place] # (Auto) 1.0 H Eos # (Auto) 0.3 Baso # (Auto) 0.0 Abs Immat Gran (auto) 0.18 H Absolute Neuts (auto) 7.6 H Absolute Nucleated RBC 0.0 Nucleated RBC % 0.0 Sodium 132 L Potassium 3.6 Chloride 105 Carbon Dioxide 19 L Anion Gap 8 BUN 4 L Creatinine 0.50 L Estim Creat Clear Calc Not Reportable Estimated GFR > 60 Glucose 83 Calcium 8.8 Total Bilirubin 0.4 AST 26 ALT 20 Alkaline Phosphatase 148 H Total Protein 7.0 Albumin 3.8 Lipase 42 Urine Color Yellow Urine Appearance Cloudy H Urine pH 7.0 Ur Specific [place] 1.008 Urine Protein Negative Urine Glucose (UA) Negative Urine Ketones 3+ H Ur Blood (Man) Negative Urine Nitrate Negative Urine Bilirubin Negative Urine Urobilinogen 0.2 Add Ur Microanalysis Reviewed Leukocyte Esterase Rfl 3+ H Urine RBC 0-2 Urine WBC 21-50 H Ur Squamous Epith Cells Few Urine Bacteria 1+ H Urine Casts 0-2 Influenza A (RT-PCR) Negative Influenza B (RT-PCR) Negative RSV (RT-PCR) Negative SARS-CoV-2 RNA (RT-PCR) Positive A Group A Strep (PCR) Not detected Final Diagnosis (1) Abdominal pain affecting : Code(s): O26.899 - Other specified related conditions, unspecified trimester; R 10.9 - Unspecified abdominal pain Status: Acute
== END 2023-02-27 07:47 | disposition home or self-care (01) ==
LOC: ANHED 02-27 04:37 → ANHOBPP 02-27 05:30
PROVIDERS: Admitting Provider Obstetrics & Gynecology; Emergency Provider Emergency Medicine; PCP Nurse Practitioner; Visit Provider Obstetrics & Gynecology
DX: O23.43 Unspecified infection of urinary tract in pregnancy, third trimester (principal); Z3A.35 35 weeks gestation of pregnancy
CPT/HCPCS: 36415; 80053; 81001; 83690; 85025; 87086; 87088; 87637; 87651; 99285; A9270; G0378; G0379

== ENCOUNTER 2023-03-01 06:32 | Outpatient (RCR) | payer OTHER, SELFPAY ==
[2023-03-01 08:15] VITALS: BP 117/79; PULSE 80
== END 2023-05-03 10:50 | disposition home or self-care (01) ==
LOC: ANHOBOP 06:32
PROVIDERS: PCP Nurse Practitioner; Visit Provider Obstetrics & Gynecology
DX: O36.8130 Decreased fetal movements, third trimester, not applicable or unspecified (principal); Z3A.36 36 weeks gestation of pregnancy
CPT/HCPCS: 59025

== ENCOUNTER 2023-03-03 06:47 | Outpatient (CLI) | payer OTHER, SELFPAY ==
[2023-03-03] VITALS (8 sets, daily range): BP systolic 107–118; BP diastolic 65–66; PULSE 86–108; O2SAT 97–98
== END 2023-03-03 08:00 | disposition home or self-care (01) ==
LOC: ANHOBOP 06:59 → ANHLDR 07:00
PROVIDERS: PCP Nurse Practitioner; Visit Provider Obstetrics & Gynecology
DX: O36.8190 Decreased fetal movements, unspecified trimester, not applicable or unspecified (principal); U07.1 COVID-19; R42 Dizziness and giddiness; Z3A.36 36 weeks gestation of pregnancy
CPT/HCPCS: 59025; 99199

== ENCOUNTER 2023-03-21 06:21 | Inpatient (IN) | payer OTHER, SELFPAY ==
[2023-03-21] VITALS (45 sets, daily range): BP systolic 107–124; BP diastolic 64–107; PULSE 69–112; RESP 16; TEMP 36.1–36.6; O2SAT 97–100; BMI 31.2
[2023-03-21] MEDS: miSOPROStol 25 MCG TABLET PO (07:35)
[2023-03-21 07:40] LABS: Basophils Percent Auto 0.5 % (0.2-1.2); Eosinophils Absolute Auto 0.1 K/mm3 (0-0.3); Eosinophils Percent Auto 1.7 % (0-4.4); Hematocrit 36.9 % (37.0-47.0); Hemoglobin 12.3 g/dL (12.0-15.0); Immature Granulocyte Absolute 0.14 K/mm3 (0.00-0.031); Immature Granulocyte Percent A 1.7 % (0-0.5); Lymphocytes Absolute Auto 1.34 K/mm3 (0.9-3.2); Lymphocytes Percent Auto 16.5 % (18.3-44.2); Mean Corpuscular HGB Conc 33.3 g/dl (32-36); Mean Corpuscular Hemoglobin 30.7 pg (26-34); Mean Platelet Volume 10.9 fl (7.4-10.4); Monocytes Absolute Auto 0.5 K/mm3 (0.1-0.6); Monocytes Percent Auto 5.7 % (2.6-8.5); Neutrophils Percent Auto 73.9 % (45.5-73.1); Platelet Count Result 147 k/mm3 (150-375); Red Blood Count 4.01 M/mm3 (4.2-5.4); White Blood Count 8.1 K/mm3 (4.5-10.0)
--- NOTE | 2023-03-21 08:39 | WPDANESEPP ---
Anes - Eval Pre Procedure Procedure: labor pain management Date/Time: 03/21/23 08:39 Surgeon: Blanca Preop Diagnosis: Pain during labor Pre Op Diagnosis: IOL Patient Data Age: 27 Gender: F Height: 1.75 m Weight: 96 kg Last Vital Signs Temp 97.3 F L 03/21/23 08:00 Pulse 75 03/21/23 08:30 BP 112/71 03/21/23 08:30 O2 Del Method Room Air 03/21/23 07:03 Allergies Allergy/AdvReac Type Severity Reaction Status Date / Time mint Allergy Intermediate swelling Verified 02/27/23 07:43 amoxicillin AdvReac Intermediate Nausea and Verified 02/27/23 07:43 Vomiting Penicillins AdvReac Intermediate Nausea and Verified 02/27/23 07:43 Vomiting Home Medications Medication Instructions Recorded Confirmed Type vit no.95-ferrous 1 tablet PO DAILY 03/01/23 03/21/23 History fumarate 28 mg-folic acid 800 mcg tablet () sertraline 25 mg tablet 25 mg PO DAILY 03/01/23 03/21/23 History aspirin 81 mg tablet 81 mg PO DAILY 03/21/23 03/21/23 History Laboratory Tests 03/21/23 07:29 WBC 8.1 K/mm3 (4.5-10.0) RBC 4.01 L M/mm3 (4.2-5.4) Hgb 12.3 g/dL (12.0-15.0) Hct 36.9 L % (37.0-47.0) MCV 92.0 fl (80-100) MCH 30.7 pg (26-34) MCHC 33.3 g/dl (32-36) RDW 13.0 % (11.5-14.5) Plt Count 147 L k/mm3 (150-375) MPV 10.9 H fl (7.4-10.4) Immature Gran % (Auto) 1.7 H % (0-0.5) Neut % (Auto) 73.9 H % (45.5-73.1) Lymph % (Auto) 16.5 L % (18.3-44.2) [place] % (Auto) 5.7 % (2.6-8.5) Eos % (Auto) 1.7 % (0-4.4) Baso % (Auto) 0.5 % (0.2-1.2) Lymph # (Auto) 1.34 K/mm3 (0.9-3.2) [place] # (Auto) 0.5 K/mm3 (0.1-0.6) Eos # (Auto) 0.1 K/mm3 (0-0.3) Baso # (Auto) 0.0 K/mm3 (0.0-0.1) Abs Immat Gran (auto) 0.14 H K/mm3 (0.00-0.031) Absolute Neuts (auto) 6.0 K/mm3 (1.3-6.7) Absolute Nucleated RBC 0.0 K/mm3 (0.0-0.012) Nucleated RBC % 0.0 % (0.0-0.2) RPR Pending Blood Type O Positive Antibody Screen Pending Patient hx anesthesia problems: none Family hx anesthesia problems: none Results Review: All pre-operative results and documents have been reviewed as part of the pre-operative evaluation. [facility] Past Medical History Medical History (Updated 03/21/23 @ 08:38 by Maricarmen Gilliland CRNA) ADHD Anxiety History of kidney stones Urolithiasis Surgical History Surgical History History of appendectomy History of lithotripsy History of wisdom tooth extraction Social History Social History Smoking status: Never smoker Second hand tobacco smoke exposure: No Substance use: never Substance use type: does not use Lack of Transportation: No Lack of Food: Never True Current Housing: I Have Housing Concerned About Future Housing: No Difficulty Paying Gas/Electric Bills: No Difficulty Paying for Meds: No Currently Unemployed: No Education: High School Diploma/GED Difficulty w/ Childcare or Family Care: No Gender identity (if verbalized by the patient): Female Spiritual care concerns: No Exam Day of Procedure 03/21/23 08:39
[2023-03-21] MEDS: miSOPROStol 25 MCG TABLET 50 MCG PO (11:45)
[2023-03-21 13:29] LABS: Rapid Plasma Reagin Non-Reactive (NonReactive)
[2023-03-21] MEDS: OXYTOCIN 30 UNITS/NS 500 ML 30 UNITS/500 ML BAG 6 UNITS IV CONT (15:49)
[2023-03-21] MEDS: LACTATED RINGERS 1,000 ML 125 ML IV CONT (15:49)
[2023-03-22] VITALS (144 sets, daily range): BP systolic 75–127; BP diastolic 32–90; PULSE 58–129; RESP 16–18; TEMP 36–36.8; O2SAT 95–100
[2023-03-22] MEDS: ONDANSETRON INJ 4 MG/2 ML VIAL IV PUSH (02:23)
[2023-03-22] MEDS: LACTATED RINGERS 1,000 ML 125 ML IV CONT ×2 (02:23→10:12)
--- NOTE | 2023-03-22 08:23 | PM.OBPNVD ---
OB - PN: Subj Subjective Date/time seen: 03/22/23 08:23 Interval history: Spontaneous rupture membranes -Clear, reassuring status, 3.5 cm dilated, epidural, expectant management OB - PN: Obj Data Labs 03/21/23 07:29 Labs: Laboratory Results - last 24 hr 03/21/23 07:29 RPR Non-reactive Antibody Screen Negative OB - PN A/P Time Spent With Patient Time: Total time spent is greater than 50% in coordination of care (as documented) at patient's floor/unit and/or counseling patient:
--- NOTE | 2023-03-22 11:18 | PM.OBPRVD ---
OB - Delivery Note Procedure Delivery date: 03/22/23 Procedure: Induction method: Per Misoprostol Protocol and Per Pitocin Protocol Delivery monitor: External FHT and Internal Uterine Route of delivery: Episiotomy description: None Laceration Description: Perineal - 2nd Degree Delivery repair: vicryl Specimen: No Quantitative Blood Loss (ml): 400 Anesthesia type: Epidural Disposition: Floor Complications: none [place] Baby Date of : 03/22/23 Time of : 10:47 Weeks of gestation at delivery: 39 Weight (pounds): 7 Weight (ounces): 2 score one minute: 4 score five minutes: 7
[2023-03-22] MEDS: OXYTOCIN 30 UNITS/NS 500 ML 30 UNITS/500 ML BAG 125 UNITS IV CONT (11:22)
[2023-03-22] MEDS: LORATADINE 10 MG TABLET PO (12:35)
[2023-03-22] MEDS: WITCH HAZEL 40 PADS 1 PAD TOPICAL (12:35)
[2023-03-22] MEDS: BENZOCAINE 20% AER SPR (*SP) 56 GM CAN 1 SPRAY TOPICAL (12:35)
[2023-03-22] MEDS: IBUPROFEN 600 MG TABLET PO ×2 (13:55→20:00)
--- NOTE | 2023-03-22 15:06 | PC.NURSE ---
This RN license pending brought pump and accessories to patient room and provided education about use and necessity if patient desires milk to come in. This RN license pending connected the patient to the pump and patient stated I don't like the way this feels and asked if baby could take formula. This RN explained feeding options for baby. Patient requested to leave the pump in the room as she wanted time to think.
--- NOTE | 2023-03-22 17:10 | PC.NURSE ---
To level II nsy per wheelchair to see baby.
[2023-03-22] MEDS: SIMETHICONE 80 MG TAB.CHEW PO (23:53)
[2023-03-22] MEDS: ACETAMINOPHEN 325 MG TABLET 650 MG PO (23:54)
[2023-03-23] MEDS: IBUPROFEN 600 MG TABLET PO ×4 (02:00→22:37)
[2023-03-23 05:14] LABS: Hematocrit 30.3 % (37.0-47.0); Hemoglobin 9.9 g/dL (12.0-15.0)
[2023-03-23] MEDS: POLYSACCHARIDE IRON COMPLEX 150 MG CAPSULE PO ×2 (07:05→16:44)
[2023-03-23] MEDS: WITCH HAZEL 40 PADS 1 PAD TOPICAL (07:05)
[2023-03-23] MEDS: MULTIVIT/MIN/PREN/FOL AC/IRON TABLET 1 TAB PO (07:05)
[2023-03-23] MEDS: SERTRALINE HCL 25 MG TABLET PO (07:05)
[2023-03-23] MEDS: DOCUSATE SODIUM 100 MG CAPSULE PO (07:06)
--- NOTE | 2023-03-23 07:23 | PM.OBPNVD ---
OB - PN: Subj Subjective Date/time seen: 03/23/23 07:23 Interval history: pp day 1 doing well baby level 2 OB - PN: Obj Data Labs 03/23/23 04:43 Labs: Laboratory Results - last 24 hr 03/23/23 04:43 Hgb 9.9 L Hct 30.3 L OB - PN A/P Time Spent With Patient Time: Total time spent is greater than 50% in coordination of care (as documented) at patient's floor/unit and/or counseling patient: Review of Systems Review of Systems: All systems reviewed & are unremarkable except as noted in HPI and below Exam Const: General: cooperative, healthy appearing and comfortable Chest: Chest palpation & inspection: normal inspection of the chest Resp: Effort & Inspection: normal respiratory effort Cardio: Rate: regular rate Rhythm: regular rhythm GI: Other: soft Skin: General skin exam: normal color Neuro: General: patient oriented x3 Extrem: Right lower extremity: normal to inspection Left lower extremity: normal to inspection
[2023-03-23 07:25] VITALS: BP 117/73; PULSE 79; RESP 16; TEMP 36.3; O2SAT 100
--- NOTE | 2023-03-23 09:40 | PC.NURSE ---
[id number] Introductions were made, then consulted with patient to assess needs related to . Mother is [id number] with her using a soothing touch with infant sleeping. Mother led the conversation with her?plans to feed?her , the?experience so far and is receptive to learning. Encouraged stimulating with massage touch, changing positions to encourage wakefulness, checking/changing the diaper (wet diaper changed) how to watch for early feeding cues, responsive feeding, feeding on demand (aiming for 8-12 times in 24 hours, about every 2-3 hours), milk production, building/maintaining a milk supply, duration of feeding, signs of adequate intake/output and how to record on the feeding sheet. While educating ways to wake infant and stimulate to feed began to demonstrate feeding cues. Mother requested assistance practicing the football hold. Reviewed positioning and ear, shoulder, hip alignment, supporting the breast to facilitate a deep latch, asymmetrical latch (off-center), leading with the chin with a big, open, wide gape and body close to mother. Infant latched optimally to the right breast in football position. Education given to mother of how to visualize suck with swallowing with dropping of the lower jaw, rocking motion movement up by the ear and [place], then pausing. Mother encouraged to stimulate infant to effectively breastfeed instead of pausing and going to sleep. Infant was able to maintain latch without discomfort to mother for at least 10 minutes. Nipple care reviewed with optimal latch and good positioning. Reviewed good handwashing when or touching the breast/nipples to prevent infection. Resources used to facilitate learning were used with the tool, mom and baby guide. Mother voiced understanding of skin to skin, stimulating with massage touch, responsive feedings, talking to infant to encourage if it has been 2 -2.5 hours since the start of the last , to call if infant does not latch, or if there is discomfort with . Resources provided for inpatient/outpatient with name written on the communication board and the mom/baby guide. Parents voiced understanding of information, demonstrated learning and will call if there is a request for assistance. Reported to the primary RN.
[2023-03-23] MEDS: ACETAMINOPHEN 325 MG TABLET 650 MG PO ×2 (10:24→16:49)
[2023-03-23 19:30] VITALS: BP 139/87; PULSE 98; RESP 18; TEMP 36.8; O2SAT 98
[2023-03-24] MEDS: ACETAMINOPHEN 325 MG TABLET 650 MG PO (04:05)
[2023-03-24 07:12] VITALS: BP 136/88; PULSE 99; RESP 18; TEMP 36.7; O2SAT 98
[2023-03-24] MEDS: IBUPROFEN 600 MG TABLET PO (07:12)
[2023-03-24] MEDS: MULTIVIT/MIN/PREN/FOL AC/IRON TABLET 1 TAB PO (10:12)
[2023-03-24] MEDS: DOCUSATE SODIUM 100 MG CAPSULE PO (10:12)
[2023-03-24] MEDS: SERTRALINE HCL 25 MG TABLET PO (10:13)
[2023-03-24] MEDS: POLYSACCHARIDE IRON COMPLEX 150 MG CAPSULE PO (10:13)
--- NOTE | 2023-03-24 10:23 | PM.OBPNVD ---
OB - PN: Subj Subjective Date/time seen: 03/24/23 10:23 Interval history: pp day 2 doing well plan d/c home OB - PN: Obj Data Labs 03/23/23 04:43 OB - PN A/P Plan day: 2 Plan: routine care and discharge home Time Spent With Patient Time: Total time spent is greater than 50% in coordination of care (as documented) at patient's floor/unit and/or counseling patient: Review of Systems Review of Systems: All systems reviewed & are unremarkable except as noted in HPI and below Exam Const: General: cooperative Resp: Effort & Inspection: normal respiratory effort Cardio: Rate: regular rate Rhythm: regular rhythm GI: Other: soft Psych: Appearance: grossly normal
--- NOTE | 2023-03-24 10:25 | PM.OBDSVD ---
DS: Admitting Diagnosis Discharge Date 03/24/23 Admitting Diagnosis IOL DS: Discharge Diagnosis Discharge Diagnosis (1) Vaginal delivery: Code(s): O80 - Encounter for full-term uncomplicated delivery Status: Acute OB - DS: Summary OB Procedures : None OB Procedures Intrapartum: Spontaneous Vag Delivery OB Procedures: : None Time Spent with Patient Time attestation: Total time spent providing and/or coordinating discharge services: Discharge Plan Discharge Attending physician on discharge: Je Rios Discharging Clinician: Anne Todd Patient Disposition: Home, Self-Care Activity: pelvic rest Diet: regular Patient Instructions: Antibiotic Form Stand Alone Forms: General Discharge Information Follow-up/Referrals: Je Rios MD [Physician] - 4 Weeks Discharge Medications: New ibuprofen 600 mg Tablet 600 mg PO Q6H PRN (Reason: Cramping) Qty: 30 0RF Continued sertraline 25 mg tablet 25 mg PO DAILY PNV cmb#95-ferrous fumarate-FA [] 28 mg iron- 800 mcg Tablet 1 tablet PO DAILY Discontinued Adult Aspirin 81 mg Tablet 81 mg PO DAILY Date of admission: 03/21/23 06:21 Primary Care Provider: Pilo,Jes Admitting Provider: Je Rios Attending physician on admission: Je Rios Condition: Stable
--- NOTE | 2023-03-24 14:24 | PC.NURSE ---
1030 Patient viewed the discharge video Mother & Baby Care, The First Two Weeks . Patient was given the opportunity and encouraged to ask questions. Patient verbalized understanding of information shared and has been given the mother/baby guide for home reference.
[2023-03-26 11:27] VITALS: BP 128/79; PULSE 79; RESP 18; TEMP 36.6; O2SAT 100
== END 2023-03-24 12:45 | disposition home or self-care (01) | DRG 807 ==
LOC: ANHLDR 06:27 → ANHOB2 03-22 14:26
PROVIDERS: Admitting Provider Obstetrics & Gynecology; PCP Nurse Practitioner; Visit Provider Obstetrics & Gynecology
DX: O69.81X0 Labor and delivery complicated by cord around neck, without compression, not applicable or unspecified (principal); Z37.0 Single live birth; O70.1 Second degree perineal laceration during delivery; Z3A.39 39 weeks gestation of pregnancy
CPT/HCPCS: 36415; 85014; 85018; 85025; 86592; 86850; 86900; 86901; A9270; J2405; J2590; J2795; J7120